=== PATIENT | male | born 1960 | race Caucasian/White ===

== ENCOUNTER 2023-04-18 09:54 | Outpatient (CLI) | payer BC, SELFPAY ==
--- NOTE | 2023-04-18 12:23 | W.ANESCHARGE ---
Anesthesia Charges Start Date/Time Anesthesia Start Date: 04/18/23 Anesthesia Start Time: 11:55 Stop Date/Time Anesthesia Stop Date: 04/18/23 Anesthesia Stop Time: 12:28
--- NOTE | 2023-04-18 12:28 | W.ANESCHARGE ---
Anesthesia Charges Start Date/Time Anesthesia Start Date: 04/18/23 Anesthesia Start Time: 11:55 Stop Date/Time Anesthesia Stop Date: 04/18/23 Anesthesia Stop Time: 12:28
== END 2023-04-18 09:55 | disposition home or self-care (01) ==
LOC: OP CLINIC 09:56
PROVIDERS: PCP Family Medicine; Visit Provider Surgery
DX: Z12.11 Encounter for screening for malignant neoplasm of colon (principal); Z86.010 Personal history of colon polyps; Z80.0 Family history of malignant neoplasm of digestive organs
CPT/HCPCS: 00811; 00812; 45378; J2704